=== PATIENT | male | born 1955 | race Caucasian/White ===

== ENCOUNTER 2017-08-31 17:36 | Emergency (ER) | payer OTHER ==
[~2017-08-31] VITALS: Ht 167.6 cm; Wt 63.6 kg
[~2017-08-31 17:36] MED LIST: ASPIRIN EC325 MG PO; CLEOCIN300 MG PO; ENDOCET 5-3251 EACH PO; MOBIC7.5 MG PO; MULTIPLE VITAM1 EAC1 PO; NAPROSYN500 MG PO; PERCOCET 5/31 TABLET PO; PREDNISONE20 MG PO; VENTOLIN HFA18 GM IH; VITAMIN B12 100MCG PO; VOLTAREN-XR100 MG PO; ZITHROMAX Z-PA250 MG PO
[2017-08-31 18:23] LABS: HEMATOCRIT 40.7 % (38.0-50.0); HEMOGLOBIN 14.5 G/DL (12.5-16.6); MCH 32.1 PG (29.0-34.0); MCHC 35.6 G/DL (30.0-36.0); PLATELET COUNT 122 K/uL (156-360); RBC DIS.WIDTH-CV 13.2 % (11.8-14.6); RBC DIS.WIDTH-SD 43.4 % (39-53); RED BLOOD COUNT 4.52 M/uL (4.00-5.50); WHITE BLOOD COUNT 5.9 K/uL (4.1-10.2)
[2017-08-31 18:32] LABS: CHLORIDE 108 mEq/L (99-109); POTASSIUM 3.9 mEq/L (3.7-5.4); SODIUM 140 mEq/L (136-147)
[2017-08-31 18:34] LABS: GLUCOSE 96 mg/dL (70-99)
[2017-08-31 18:38] LABS: CREATININE 0.9 mg/dL (0.6-1.3); GFR ESTIMATE (CALCULATED) > 59 mL/min/ (58.99-99999)
[2017-08-31 18:39] LABS: UREA NITROGEN (BUN) 9 mg/dL (9-23)
[2017-08-31 18:41] LABS: TROP-I INTERPRETATION NEGATIVE; TROPONIN-I < 0.01 ng/mL (0.0-0.30)
[2017-08-31 19:49] LABS: TOTAL PROTEIN 6.9 g/dL (6.4-8.3)
[2017-08-31 19:51] LABS: TOTAL BILIRUBIN 0.5 mg/dL (0.0-1.0)
[2017-08-31 19:52] LABS: ALKALINE PHOSPHATASE 68 IU/L (3-129)
[2017-08-31 19:54] LABS: AST (GOT) 16 IU/L (2-34); DIRECT BILIRUBIN 0.2 mg/dL (0.0-0.3)
[2017-08-31 19:55] LABS: ALT (GPT) 12 IU/L (3-49); LIPASE 30 U/L (1.0-51.0)
[2017-08-31 20:39] LABS: APPEARANCE CLEAR ((CLEAR)); BILIRUBIN NEGATIVE; BLOOD NEGATIVE; COLOR YELLOW ((YELLOW)); GLUCOSE (STRIP) NEGATIVE; KETONES NEGATIVE; LEUKOCYTES NEGATIVE; NITRITE NEGATIVE; PROTEIN (STRIP) NEGATIVE; SPECIFIC GRAVITY 1.013 (1.000-1.030); UCUL ADDED? NO; UROBILINOGEN 0.2 MG/DL (0.2-1.0)
[2017-08-31 21:45] LABS: TROP-I INTERPRETATION NEGATIVE; TROPONIN-I < 0.01 ng/mL (0.0-0.30)
[2017-08-31 22:28] VITALS: BP 148/87
== END 2017-08-31 22:29 | disposition home or self-care (01) ==
LOC: EME 17:36
PROVIDERS: Emergency Medicine
DX: R07.89 Other chest pain (principal); F17.200 Nicotine dependence, unspecified, uncomplicated; F41.9 Anxiety disorder, unspecified; Z88.0 Allergy status to penicillin
CPT/HCPCS: 71046; 80048; 80076; 81003; 83690; 84484; 85027; 93005; 99281; 99285